=== PATIENT | female | born 1990 | race Caucasian/White ===

== ENCOUNTER 2025-03-06 16:29 | Emergency (ER) | payer BC, SELFPAY ==
[2025-03-06 16:35] VITALS: BP 153/104
[2025-03-06 17:16] LABS: % Basophils 0.6 % (0-2); % Eosinophils 0.6 % (0-6); % Immature Granulocytes 0.3 % (0-0.5); % Lymphocytes 32.9 % (20.5-51.1); % Monocytes 8.2 % (1.7-9.3); % Neutrophils 57.4 % (42.2-75.2); Absolute Basophils 0.1 10^3/uL (0-0.2); Absolute Eosinophils 0.1 10^3/uL (0-0.7); Absolute Lymphocytes 3.2 10^3/uL (1.2-3.4); Absolute Monocytes 0.8 10^3/uL (0.1-0.6); Absolute Neutrophils 5.6 10^3/uL (1.4-6.5); Hematocrit 42.6 % (37.0-47.0); Hemoglobin 14.8 g/dL (12.0-16.0); Mean Corp Hgb Conc. 34.7 g/dL (33.0-37.0); Mean Corpuscular Hgb 30.7 pg (27.0-31.0); Mean Corpuscular Volume 88.4 fL (81.0-99.0); Mean Platelet Volume 9.3 fL (7.4-10.4); Nucleated Red Blood Cells % 0 %; Platelet Count 312 10^3/uL (130-400); Red Blood Cell Count 4.82 10^6/uL (4.20-5.40); Red Cell Dist. Width 11.6 % (11.5-14.5); White Blood Cell Count 9.8 10^3/uL (4.8-10.8)
[2025-03-06 17:31] LABS: HCG, Serum Qualitative Screen Negative
[2025-03-06 17:37] LABS: ALT (SGPT) 48 U/L (0-35); AST (SGOT) 35 U/L (14-36); Albumin 4.9 g/dl (3.5-5.0); Alkaline Phosphatase 68 U/L (38-126); Blood Urea Nitrogen 13 mg/dl (7-17); Calcium 9.9 mg/dl (8.4-10.2); Carbon Dioxide 24 mmol/L (22-30); Chloride 109 mmol/L (98-107); Glucose 100 mg/dl (70-99); Potassium 4.5 mmol/L (3.5-5.1); Sodium 144 mmol/L (135-145); Total Bilirubin 0.3 mg/dl (0.2-1.3); Total Protein 8.2 g/dl (6.3-8.2); eGFR > 60.00
--- NOTE | 2025-03-06 20:11 | ED.GENMED ---
History of Present Illness
General
Chief Complaint: Blood Pressure Problem
Source: patient
Exam Limitations: none
Time Seen by Provider: 03/06/25 19:34
History of Present Illness
History of Present Illness:
Patient is a 35-year-old [employer] who presents with concerns for her blood pressure along with ongoing headaches. Headaches have been for a month. She gets them frequently. Bifrontal/temporal. No visual issues speech issues or other neurologic
symptoms. She checked her blood pressure today which was elevated which was her main concern with coming to the ER. She did have -induced hypertension. Blood pressures recently have also been mildly elevated.
Past History
Past History
ED Past Medical History: Other (-induced hypertension)
ED Past Surgical History: Appendectomy and
Social History
Personal:
Employment: Employed
Family History
Family History: Hypertension
Phy Exam
Physical Exam
Physical Exam:
GENERAL: Alert and oriented in no apparent distress
EYE: Orbits normal. This sharp
NECK: Supple, no thyroid palpable
ENT: Pharynx without erythema
CARDIAC: Regular rate and rhythm without any obvious murmurs.
LUNGS: Clear breath sounds,normal
ABDOMEN: Soft, without focal tenderness or distention
NEUROLOGICAL: Alert and oriented , grossly non-focal
SKIN: Warm and dry, no rash or lesion, no discoloration, skin intact.
MUSCULOSKELETAL: No edema,no deformity.Good color
PSYCH: Normal and appropriate interaction. No thyroid palpable
Course
Orders/Labs/Results
Orders:
Orders
03/06/25 16:39
Test Result ONCE
03/06/25 17:03
Complete Blood Count/With Diff Urgent
Comprehensive Metabolic Panel Urgent
HCG, Serum Qualitative Screen Urgent
TSH Reflex To Free T4 Urgent
Comment: ADD ON
03/06/25 19:45
CT Head W/o Iv Contrast Urgent
Comment:
Reason For Exam: Headache/hypertension
Cardiac Monitoring- Treatment ONCE
03/06/25 20:14
Add On- LAB Urgent
Tests Added?: tsh reflex t4
03/06/25 21:23
Amlodipine [Norvasc] 2.5 mg PO NOW STA
Abnormal Lab Results
03/06/25
17:03
Absolute Monos (auto) 0.8 H 10^3/uL
(0.1-0.6)
Chloride 109 H mmol/L
(98-107)
Glucose 100 H mg/dl
(70-99)
ALT 48 H U/L
(0-35)
03/06/25 17:03
03/06/25 17:03
Vital Signs
Initial and Last Documented VS:
Initial Vital Signs
Temp Pulse Resp BP Pulse Ox
98.5 F 86 18 153/104 100
03/06/25 16:35 03/06/25 16:35 03/06/25 16:35 03/06/25 16:35 03/06/25 16:35
Last Documented Vital Signs
Temp Pulse Resp BP Pulse Ox
98.5 F 70 13 137/87 100
03/06/25 16:35 03/06/25 22:00 03/06/25 22:00 03/06/25 22:00 03/06/25 16:35
MDM/Problems Addressed
Differential Diagnosis Includes:
Patient with mildly elevated blood pressure and vague ongoing headaches. Medically stable. Benign neurologic exam. Workup in progress. Discussed pluses and minuses of starting a low-dose antihypertensive.
*Critical Care Note
Total Time (30-74mins, 75-104mins- exclusive of procedures): Not Applicable
Update Note
Update Note:
Patient is clinically stable and nontoxic. Discussed starting a very low-dose of blood pressure medicine versus observation. She would very much prefer to start something. Will start a low-dose of amlodipine to follow-up.
2229... Remained stable. Feels well. Blood pressure stable. Discharged to follow-up
ED Attending Note
-
Portions of this chart may have been created with voice recognition software.� Occasional wrong word or��sound alike� substitutions may have occurred due to the inherent limitations of voice recognition software.
Discharge Plan
Departure
Patient Disposition: Home (Routine Discharge)
Date of Disposition: 03/06/25
Time of Disposition: 22:27
Patient with high blood pressure during this ER visit?: Yes
Discharge Problem:
Elevated blood pressure, Recurring headaches
Instructions: Headache in adults - ED discharge instructions, BLOOD PRESSURE
Prescriptions:
New
amlodipine 2.5 mg tablet
2.5 mg PO DAILY Qty: 30 0RF
No Action
PN cmb#95-ferrous fumarate-FA [] 1 EACH tablet
1 ea PO DAILY
famotidine 20 mg Tablet
20 mg PO BID
calcium carbonate [Tums] 200 mg calcium (500 mg) Tablet,Chewable
200 mg PO BID
ferrous sulfate [FeroSul] 325 mg (65 mg iron) Tablet
325 mg PO DAILY Qty: 0 0RF
sennosides-docusate sodium [Senna Plus] 8.6-50 mg Tablet
1 tab PO DAILYPRN PRN (Reason: constipation) Qty: 0 0RF
ibuprofen 600 mg Tablet
600 mg PO Q6HPRN PRN (Reason: cramps) Qty: 60 0RF
acetaminophen 325 mg Tablet
650 mg PO Q4HPRN PRN (Reason: mild pain) Qty: 0 0RF
Referrals:
Dante Patterson MD [Active, Cardiology] - Follow up in 5-7 days
UNKNOWN - PT DOES,NOT KNOW [Family Provider]
Activity Restrictions/Additional Instructions:
Follow-up your blood pressure closely
Your prescription was sent to your pharmacy
Interventions
Interventions:
*Risk Screen - Suicide Last Done: 03/06/25 16:35
*General Assessment Last Done: 03/06/25 16:35
*Neglect/Abuse Screening Last Done: 03/06/25 20:19
ED- Cardiac Assessment Last Done: 03/06/25 20:19
ED- Neurological Assessment Last Done: 03/06/25 20:19
ED- Pulmonary Assessment Last Done: 03/06/25 20:19
Discharge Date and Time
Print Language: LAO
[2025-03-06 20:19] VITALS: BMI 27.3
[2025-03-06 21:02] VITALS: BP 130/87
[2025-03-06 21:18] LABS: TSH Reflex To Free T4 1.41 uIU/ml (0.47-4.68)
[2025-03-06] MEDS: NORVASC 2.5 MG PO (21:41)
[2025-03-06 22:00] VITALS: BP 137/87
[2025-03-06 22:45] VITALS: BP 136/89
== END 2025-03-06 22:54 | disposition home or self-care (01) ==
LOC: EMR 16:29
PROVIDERS: Emergency Medicine; EMERGENCY PHYSICIAN Emergency Medicine
DX: R51.9 Headache, unspecified (principal); R03.0 Elevated blood-pressure reading, without diagnosis of hypertension
CPT/HCPCS: 99285; 70450; 80053; 84443; 84703; 85025

== ENCOUNTER → 2025-06-01 16:48 | Outpatient (REF) | payer BC, SELFPAY | LOC: PNTC 16:48 | PROVIDERS: ATTENDING PHYSICIAN Student in an Organized Health Care Education/Training Program | DX: Z36.0 Encounter for antenatal screening for chromosomal anomalies (principal); Z36.82 Encounter for antenatal screening for nuchal translucency | CPT/HCPCS: 76801; 76813 ==

== ENCOUNTER → 2025-06-21 09:55 | Outpatient (REF) | payer BC, SELFPAY | LOC: PNTC 09:55 | PROVIDERS: ATTENDING PHYSICIAN Student in an Organized Health Care Education/Training Program | DX: Z87.59 Personal history of other complications of pregnancy, childbirth and the puerperium (principal); O34.219 Maternal care for unspecified type scar from previous cesarean delivery; O10.012 Pre-existing essential hypertension complicating pregnancy, second trimester | CPT/HCPCS: 76805 ==

== ENCOUNTER → 2025-07-19 13:27 | Outpatient (REF) | payer BC, SELFPAY | LOC: PNTC 13:27 | PROVIDERS: ATTENDING PHYSICIAN Student in an Organized Health Care Education/Training Program | DX: O10.012 Pre-existing essential hypertension complicating pregnancy, second trimester (principal); O34.219 Maternal care for unspecified type scar from previous cesarean delivery; Z87.59 Personal history of other complications of pregnancy, childbirth and the puerperium; Z36.86 Encounter for antenatal screening for cervical length; O43.212 Placenta accreta, second trimester | CPT/HCPCS: 76811; 76817; 93976 ==

== ENCOUNTER → 2025-08-16 16:23 | Outpatient (REF) | payer BC, SELFPAY | LOC: PNTC 16:23 | PROVIDERS: ATTENDING PHYSICIAN Student in an Organized Health Care Education/Training Program | DX: O10.112 Pre-existing hypertensive heart disease complicating pregnancy, second trimester (principal); Z87.59 Personal history of other complications of pregnancy, childbirth and the puerperium; O34.219 Maternal care for unspecified type scar from previous cesarean delivery | CPT/HCPCS: 76816; 93976 ==

== ENCOUNTER → 2025-09-13 12:43 | Outpatient (REF) | payer BC, SELFPAY | LOC: PNTC 12:43 | PROVIDERS: ATTENDING PHYSICIAN Student in an Organized Health Care Education/Training Program | DX: O34.219 Maternal care for unspecified type scar from previous cesarean delivery (principal); O10.019 Pre-existing essential hypertension complicating pregnancy, unspecified trimester; Z87.59 Personal history of other complications of pregnancy, childbirth and the puerperium; O14.03 Mild to moderate pre-eclampsia, third trimester; Z34.90 Encounter for supervision of normal pregnancy, unspecified, unspecified trimester | CPT/HCPCS: 36415; 76816; 86850; 86900; 86901; 96372; J2790 ==